=== PATIENT | male | born 2005 | race Native Hawaiian/Other Pacific Islander ===

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

== ENCOUNTER 2024-10-04 11:19 | Emergency (ER) | payer OTHER ==
[~2024-10-04] VITALS: Ht 180.3 cm; Wt 113.2 kg
[2024-10-04] MEDS ORDERED: IBUP-1022 PO (14:34)
[2024-10-04] MEDS: IBUPROFEN 600 MG TAB PO ONE (14:38)
[2024-10-04 14:40] VITALS: BP 119/61; TEMP 97.2; O2SAT 99
== END 2024-10-04 14:42 | disposition home or self-care (01) ==
LOC: M ED 11:19
DX: M76.51 Patellar tendinitis, right knee (principal); R22.31 Localized swelling, mass and lump, right upper limb; Z79.1 Long term (current) use of non-steroidal anti-inflammatories (NSAID)